=== PATIENT | male | born 1945 | race Caucasian/White ===

== ENCOUNTER → 2018-12-10 | Outpatient (CLI) | payer MEDICARE, OTHER ==
[~2018-12-10] MED LIST: IOPAMIDOL 370 MG/ML 200 ML INFUS..BTL INJ ONE; SODIUM CHLORIDE 0.9% 50ML 50 ML ONE
[2018-12-10 16:33] LABS: BLOOD UREA NITROGEN 14 mg/dL (7-26); BUN/CREATININE RATIO 15 (6-25); CREATININE, SERUM 0.91 mg/dL (0.72-1.25); EST GLOMERULAR FILTRATION RATE > 60 ML/MIN (60-)
--- NOTE | 2018-12-10 17:11 | Diagnostic Imaging Report ---
EXAM: CT Pelvis WITH intravenous contrast INDICATION: Lower abdominal pain, groin pain COMPARISON: None. TECHNIQUE: Pelvis were scanned utilizing a multidetector helical scanner from the iliac crest to the pubic symphysis following administration of IV contrast. Coronal and sagittal reformations were obtained. Routine protocol was performed. IV CONTRAST: 100cc Isovue 370. ORAL CONTRAST: None RADIATION DOSE: Total DLP: 434.0 mGy*cm COMPLICATIONS: None FINDINGS: LINES and TUBES: None. GI TRACT: No abnormal bowel wall thickening. No bowel obstruction. Diverticulosis with no CT evidence of diverticulitis. Normal appendix. PELVIC ORGANS/BLADDER: Prostatomegaly to 5.0 cm with coarse internal calcifications. Small bilateral hydroceles. LYMPH NODES: No lymphadenopathy. VESSELS: Unremarkable. PERITONEUM / RETROPERITONEUM: No free air or fluid. No lymphadenopathy. BONES: No acute osseous injury. Partially visualized fixation hardware of the left femur. SOFT TISSUES: Small right gluteal injection granulomas. IMPRESSION: No acute process in the pelvis. Prostatomegaly. Signed by: Royce Rico MD on 12/10/2018 5:07 PM
== END ==
LOC: CT 15:38
PROVIDERS: ATTEND Surgery
DX: R10.31 Right lower quadrant pain (principal)
CPT/HCPCS: 36415; 72193; 82565; 84520; Q9967